=== PATIENT | male | born 2000 | race Caucasian/White ===

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

== ENCOUNTER 2021-01-05 09:43 | Emergency (ER) | payer BC, OTHER ==
[~2021-01-05] VITALS: Ht 175.3 cm; Wt 74.7 kg
[~2021-01-05 09:43] MED LIST changes: +PARO5TAB PO; +VENL37TA PO
[2021-01-05] MEDS ORDERED: AMPHETA/DEXTRO (09:51)
[2021-01-05] MEDS ORDERED: ADDE20CA3 (09:51)
[2021-01-05] MEDS ORDERED: ARIP1TAB4 (09:51)
[2021-01-05] MEDS ORDERED: VENTAER INH (12:33)
[2021-01-05] MEDS ORDERED: SING10TA32 PO (12:33)
[2021-01-05 12:59] VITALS: BP 130/73
== END 2021-01-05 13:00 | disposition home or self-care (01) ==
LOC: M ED 09:43
DX: F41.9 Anxiety disorder, unspecified (principal); F43.0 Acute stress reaction; F12.10 Cannabis abuse, uncomplicated; Z88.1 Allergy status to other antibiotic agents

== ENCOUNTER 2024-08-09 20:58 | Inpatient (IN) | payer OTHER, SELFPAY ==
[~2024-08-09] VITALS: Ht 177.8 cm; Wt 81.0 kg
[~2024-08-09 20:58] MED LIST changes: +ADDE20CA3; +AMPHETA/DEXTRO; +ARIP1TAB4; +MONT-5 PO; +VENTAER INH
[2024-08-09 21:50] LABS: HEMATOCRIT 42.5 % (42.0-52.0); HEMOGLOBIN 14.3 g/dl (13.5-17.5); MEAN CORPUSCULAR HGB CONC 33.6 g/dl (32.0-36.5); MEAN CORPUSCULAR VOLUME 89.1 fl (80.0-96.0); PLATELET COUNT, AUTOMATED 364 10^3/uL (150-450); RED BLOOD COUNT 4.77 10^6/uL (4.30-6.10); WHITE BLOOD COUNT 7.7 10^3/uL (4.0-10.0)
[2024-08-09] MEDS ORDERED: QUET50TA4 PO (22:03)
[2024-08-09] MEDS ORDERED: ALPR0.25 PO (22:03)
[2024-08-09] MEDS ORDERED: CARV6.25 PO (22:03)
[2024-08-09] MEDS ORDERED: LURA40TA2 PO (22:03)
[2024-08-09] MEDS ORDERED: FLUO-365 PO (22:03)
[2024-08-09] MEDS ORDERED: ZYRTTAB8 PO (22:04)
[2024-08-09 22:20] LABS: ETHYL ALCOHOL (ETHANOL) < 0.003 % (0.000-0.010)
[2024-08-09 22:22] LABS: SALICYLATE LEVEL < 3.0 MG/DL (<30)
[2024-08-09 22:23] LABS: ALBUMIN 4.5 G/DL (3.2-5.2); ALKALINE PHOSPHATASE 52 U/L (40-129); ALT/SGPT 91 U/L (7.0-40); AST/SGOT 54 U/L (<34); BILIRUBIN,DIRECT 0.2 MG/DL (<0.4); BILIRUBIN,TOTAL 0.5 MG/DL (0.3-1.2); BLOOD UREA NITROGEN 10 MG/DL (9-23); CALCIUM LEVEL 9.8 MG/DL (8.5-10.1); CARBON DIOXIDE LEVEL 28 MMOL/L (20-31); CHLORIDE LEVEL 108 MMOL/L (98-107); GLOMERULAR FILTRATION RATE > 60.0 (>60); GLUCOSE, FASTING 99 MG/DL (60-100); POTASSIUM SERUM 3.7 MMOL/L (3.5-5.1); SODIUM LEVEL 143 MMOL/L (136-145); TOTAL PROTEIN 7.3 G/DL (5.7-8.2)
[2024-08-09 22:25] LABS: THYROID STIMULATING HORMONE 0.448 uIU/ML (0.55-4.78)
[2024-08-09] MEDS ORDERED: BENA25CA4 PO (22:27)
[2024-08-09 22:32] LABS: AMPHETAMINES LEVEL URINE NEGATIVE (NEGATIVE); BARBITURATES URINE NEGATIVE (NEGATIVE); COCAINE METABOLITE URINE NEGATIVE (NEGATIVE); METHADONE URINE NEGATIVE (NEGATIVE); OPIATES URINE NEGATIVE (NEGATIVE); PHENCYCLIDINE URINE NEGATIVE (NEGATIVE)
[2024-08-09 22:35] LABS: BENZODIAZEPINES URINE POSITIVE (NEGATIVE); CANNABINOIDS URINE POSITIVE (NEGATIVE)
[2024-08-09] MEDS: CARVedilol 3.125 MG TAB PO ONE (23:04)
[2024-08-10] MEDS ORDERED: MAALOX 30 ML SUSP *UDC PO PRN (00:15)
[2024-08-10] MEDS ORDERED: ACETAMINOPHEN 325 MG TAB PO PRN (00:15)
[2024-08-10] MEDS ORDERED: traZODone 50 MG TAB PO PRN (00:15)
[2024-08-10] MEDS ORDERED: MOM 30ML SUSPENSION UDC PO PRN (00:15)
[2024-08-10] MEDS ORDERED: HOME MED LIST COMPLETE! XX SCH (00:25)
[2024-08-10] MEDS: CARVedilol 3.125 MG TAB PO ONE (00:32)
[2024-08-10] MEDS: diphenhydrAMINE 25MG CAP PO ONE (00:49)
[2024-08-10] MEDS: QUEtiapine FUMARATE 50MG TAB PO ONE (00:50)
[2024-08-10] MEDS: IBUPROFEN 400MG TAB PO PRN (00:50)
[2024-08-10 02:35] VITALS: BP 121/68; TEMP 97.5; O2SAT 98
[2024-08-10 06:40] VITALS: BP 113/66; TEMP 97.6; O2SAT 98
[2024-08-10] MEDS: NICOTINE 14 MG/24 HR TRANSDERMAL TD SCH (08:22)
[2024-08-10] MEDS: diphenhydrAMINE 25MG CAP PO PRN (08:22)
[2024-08-10] MEDS ORDERED: ALPRAZolam 0.25 MG TAB PO PRN (09:05)
[2024-08-10] MEDS: FLUoxetine 20MG CAP PO SCH (10:28)
[2024-08-10] MEDS: CARVedilol 3.125 MG TAB PO SCH (11:41)
[2024-08-10] MEDS: OLANZapine ORAL DISINTEGRATING TAB 5MG PO PRN (13:02)
[2024-08-10] MEDS: NICOTINE POLACRILEX 2 MG GUM PO PRN (14:08)
[2024-08-10] MEDS: NICOTINE 21MG/24HR 1 EA TRANSDERMAL TD SCH (15:01)
[2024-08-10 15:04] VITALS: BP 139/94; TEMP 98.5; O2SAT 99
[2024-08-10 15:57] LABS: FREE T4 1.74 NG/DL (0.89-1.76)
[2024-08-10] MEDS: CETIRIZINE (ZyrTEC) 10 MG TAB PO SCH (20:22)
[2024-08-10] MEDS: LURASIDONE HCL 40MG TAB (LATUDA) PO SCH (20:22)
[2024-08-10] MEDS: diphenhydrAMINE 50MG CAP PO PRN (20:23)
[2024-08-10] MEDS ORDERED: diphenhydrAMINE 25MG CAP PO SCH (21:00)
[2024-08-10] MEDS ORDERED: CETIRIZINE (ZyrTEC) 10 MG TAB PO SCH (21:00)
[2024-08-10] MEDS: QUEtiapine FUMARATE 50MG TAB PO SCH (22:50)
[2024-08-11 06:36] VITALS: BP 126/70; TEMP 98.2; O2SAT 98
[2024-08-11 08:52] VITALS: BP 133/90
[2024-08-11] MEDS ORDERED: NICOTINE 21MG/24HR 1 EA TRANSDERMAL TD SCH (09:00)
[2024-08-11] MEDS: SODIUM CHLORIDE NASAL 0.65% SPRAY BTL (OCEAN) PRN (09:24)
[2024-08-11 16:31] VITALS: BP 119/70; TEMP 97.6; O2SAT 100
[2024-08-12 06:44] VITALS: BP 143/79; TEMP 98.5; O2SAT 98
[2024-08-12 08:23] VITALS: BP 132/78
[2024-08-12 16:21] VITALS: BP 129/79; TEMP 97.9; O2SAT 100
[2024-08-13 06:26] VITALS: BP 123/65; TEMP 97.5; O2SAT 100
[2024-08-13 08:03] VITALS: BP 149/89
[2024-08-13 08:07] VITALS: BP 149/89
[2024-08-13] MEDS ORDERED: OLAN5ZYD PO (12:42)
== END 2024-08-13 13:27 | disposition home or self-care (01) | DRG 880 ==
LOC: M ED 20:58 → M ED INP 08-10 00:13 → M PSY 08-10 02:13
PROVIDERS: ADMIT Psychiatry & Neurology Neurology; ATTEND Psychiatry & Neurology Psychiatry
DX: F41.1 Generalized anxiety disorder (principal); R45.851 Suicidal ideations; I43 Cardiomyopathy in diseases classified elsewhere; Z81.1 Family history of alcohol abuse and dependence; Z79.899 Other long term (current) drug therapy; Z88.1 Allergy status to other antibiotic agents; G71.01 Duchenne or Becker muscular dystrophy